=== PATIENT | female | born 1995 | race African-American/Black ===

== ENCOUNTER 2024-09-18 21:25 | Emergency (ER) | payer OTHER ==
[2024-09-18 21:41] VITALS: BP 111/67; PULSE 97; RESP 20; TEMP 98.1; BMI 17.9
[2024-09-18] MEDS ORDERED: KETOROLAC TROMETHAMINE 30 MG/1 ML VIAL ONE (23:10)
[2024-09-18] MEDS: KETOROLAC TROMETHAMINE 30 MG/1 ML VIAL IM ONE (23:16)
== END 2024-09-19 00:12 | disposition home or self-care (01) ==
LOC: JER 21:25
PROC: 3E0233Z Introduction of Anti-inflammatory into Muscle, Percutaneous Approach (ICD-10-PCS; principal; 2024-09-18)
DX: M54.50 Low back pain, unspecified (principal)
CPT/HCPCS: 99284-25